=== PATIENT | male | born 1960 | race Caucasian/White ===

== ENCOUNTER 2017-02-12 13:01 | Inpatient (IN) | payer BC ==
[~2017-02-12] VITALS: Ht 172.7 cm; Wt 122.5 kg
[~2017-02-12 13:01] MED LIST: ABILIFY5 MG PO; BENICAR20 MG PO; BUSPAR5 MG PO; CARAFATE1 GM PO; CHLORTHALID25 MG PO; METOPROL TAR25 M1 PO; MINOCYCLINE100 MG PO; MIRTAZAPINE15 MG PO; MISOPROSTOL PO; MISOPROSTOL100 MCG PO; NYSTATIN100000 M1 PO; ONDANSETRON HCL4 MG PO; ONDANSETRON ODT8 MG PO; OXYCODONE/ACETA1 TAB PO; PANTOPRAZOLE SO40 MG PO; PRISTIQ100 MG PO; PROBIOTIC1 TAB PO; TYLOPHEN500 MG PO; VITAMIN B-1100 M2 PO; VITAMIN D1000 UNIT PO; XANAX1 MG PO
[2017-02-12] MEDS ORDERED: METOPROL TAR25 MG PO (13:19)
[2017-02-12] MEDS ORDERED: ARIPIPRAZOLE5 MG PO (13:20)
[2017-02-12] MEDS ORDERED: VENLAFAXINE HCL75 M1 PO (13:23)
[2017-02-12 15:05] LABS: HEMATOCRIT 47.9 % (39.0-50.0); HEMOGLOBIN 16.2 g/dl (14.0-18.0); IMMATURE GRANULOCYTES 0.3 % (0.0-1.0); MEAN CELL VOLUME 80.5 fL CALC (80.0-100.0); MEAN CORPUSCULAR HGB 27.2 pG CALC (26.0-32.0); MEAN CORPUSCULAR HGB CONC 33.8 g/L CALC (32.0-36.0); NEUT# 3.24 thou/uL (1.82-7.42); RED BLOOD COUNT 5.95 mill/uL (4.70-6.10); RED CELL DISTRI WIDTH 12.4 % (11.5-15.5)
[2017-02-12 15:24] LABS: ALBUMIN 4.2 g/dL (3.2-5.0); ALKALINE PHOSPHATASE 76 u/l (38-126); ANION GAP 17 (6-22 (CALC)); BILIRUBIN, TOTAL 0.6 mg/dL (0.0-1.4); BUN 16 mg/dL (9-20); BUN/CREATININE RATIO 17 (12-20 (CALC)); CALCIUM 9.4 mg/dL (8.4-10.2); CARBON DIOXIDE 25 mmol/l (22-30); CHLORIDE 106 mmol/l (95-108); GFR > 60 ML/MIN (>=60 (CALC)); GFR FOR AFR.AMER. > 60 ML/MIN (>=60 (CALC)); GLUCOSE 103 mg/dL (75-110); POTASSIUM 4.1 mmol/l (3.5-5.1); SGOT/AST 43 u/l (17-59); SGPT/ALT 71 u/l (21-72); SODIUM 144 mmol/l (137-146); TOTAL PROTEIN 7.6 g/dL (6.3-8.2)
[2017-02-12 15:36] LABS: MYOGLOBIN 31 ng/mL (0 - 121)
[2017-02-12 16:41] LABS: URINE BILIRUBIN - DIPSTICK NEGATIVE (NEGATIVE); URINE BLOOD DIPSTICK NEGATIVE (NEGATIVE); URINE CLARITY CLEAR; URINE COLOR YELLOW; URINE GLUCOSE - DIPSTICK NEGATIVE (NEGATIVE); URINE KETONE NEGATIVE (NEGATIVE); URINE LEUK ESTERASE NEGATIVE (NEGATIVE); URINE NITRITE - DIPSTICK NEGATIVE (Negative); URINE PH 5.5 (4.5-8.0); URINE PROTEIN - DIPSTICK NEGATIVE (NEG-TRACE); URINE SPECIFIC GRAVITY 1.025; URINE UROBILINOGEN - DIPSTICK 0.2 E.U./dL (0.2)
[2017-02-12 16:46] LABS: BARBITURATES NEGATIVE (NEGATIVE); COCAINE NEGATIVE (NEGATIVE); METHADONE NEGATIVE (NEGATIVE); OXCYCODONE NEGATIVE (NEGATIVE); TETRAHYDROCANNABIONOL NEGATIVE (NEGATIVE); TRICYLIC ANTIDEPRESSANTS NEGATIVE (NEGATIVE)
[2017-02-12 18:30] VITALS: BP 136/92
[2017-02-12 19:53] VITALS: BP 135/80
[2017-02-12 23:20] VITALS: BP 119/73
[2017-02-13 05:44] VITALS: BP 116/80
[2017-02-13 06:03] LABS: HEMATOCRIT 46.7 % (39.0-50.0); HEMOGLOBIN 15.7 g/dl (14.0-18.0); IMMATURE GRANULOCYTES 0.5 % (0.0-1.0); MEAN CELL VOLUME 81.5 fL CALC (80.0-100.0); MEAN CORPUSCULAR HGB 27.4 pG CALC (26.0-32.0); MEAN CORPUSCULAR HGB CONC 33.6 g/L CALC (32.0-36.0); NEUT# 2.83 thou/uL (1.82-7.42); RED BLOOD COUNT 5.73 mill/uL (4.70-6.10); RED CELL DISTRI WIDTH 12.6 % (11.5-15.5)
[2017-02-13 06:17] LABS: ANION GAP 16 (6-22 (CALC)); BUN 15 mg/dL (9-20); BUN/CREATININE RATIO 17 (12-20 (CALC)); CALCIUM 9.1 mg/dL (8.4-10.2); CALCULATED LDLCHOLESTEROL 96 mg/dL (62-129 (CALC)); CARBON DIOXIDE 24 mmol/l (22-30); CHLORIDE 105 mmol/l (95-108); CREATININE 0.9 mg/dL (0.7-1.3); GFR > 60 ML/MIN (>=60 (CALC)); GFR FOR AFR.AMER. > 60 ML/MIN (>=60 (CALC)); GLUCOSE 98 mg/dL (75-110); HDL CHOLESTEROL 19 mg/dL (>=40); POTASSIUM 4.9 mmol/l (3.5-5.1); SODIUM 140 mmol/l (137-146); TOTAL CHOLESTEROL 170 mg/dl (0-199); TOTAL TRIGLYCERIDES 277 mg/dl (30-149); VLDL CHOLESTROL 55 mg/dl (8-62 (CALC))
[2017-02-13 08:23] VITALS: BP 138/62
[2017-02-13 11:18] VITALS: BP 134/89
[2017-02-13 15:48] VITALS: BP 125/84
[2017-02-13 19:00] VITALS: BP 150/97
[2017-02-13 23:23] VITALS: BP 123/80
[2017-02-14 03:46] VITALS: BP 126/79
[2017-02-14 08:46] VITALS: BP 132/80
[2017-02-14] MEDS ORDERED: ATORVASTATIN CA40 MG PO (10:53)
[2017-02-14] MEDS ORDERED: ADLT ASA LOW81 MG PO (10:53)
[2017-02-14 10:58] VITALS: BP 129/78
== END 2017-02-14 14:03 | disposition home or self-care (01) | DRG 69 ==
LOC: ENPENDDIS → ED 13:01 → ED-I 16:50 → ED 17:28 → MS2 17:29
PROVIDERS: Emergency Medicine; ADMIT Internal Medicine; ATTEND Internal Medicine
DX: G45.9 Transient cerebral ischemic attack, unspecified (principal); I10 Essential (primary) hypertension; G43.909 Migraine, unspecified, not intractable, without status migrainosus; M19.90 Unspecified osteoarthritis, unspecified site; F32.9 Major depressive disorder, single episode, unspecified; Z98.84 Bariatric surgery status; Z86.73 Personal history of transient ischemic attack (TIA), and cerebral infarction without residual deficits
CPT/HCPCS: J1650